=== PATIENT | female | born 1960 | race Caucasian/White ===

== ENCOUNTER 2018-04-08 08:35 | Outpatient (CLI) | payer OTHER | END 2018-04-08 08:37 | disposition home or self-care (01) | LOC: MAMO-SONO 08:35 | DX: Z12.31 Encounter for screening mammogram for malignant neoplasm of breast (principal); Z12.79 Encounter for screening for malignant neoplasm of other genitourinary organs ==

== ENCOUNTER 2020-04-06 11:37 | Outpatient (CLI) | payer OTHER | END 2020-04-06 11:51 | disposition home or self-care (01) | LOC: MAMO-SONO 11:37 | DX: Z12.31 Encounter for screening mammogram for malignant neoplasm of breast (principal); N64.4 Mastodynia ==

== ENCOUNTER 2022-04-11 11:42 | Outpatient (CLI) | payer OTHER | END 2022-04-11 12:01 | disposition home or self-care (01) | LOC: MAMO-SONO 11:42 | PROVIDERS: ATTEND Family Medicine | DX: N60.11 Diffuse cystic mastopathy of right breast (principal); N60.12 Diffuse cystic mastopathy of left breast ==

== ENCOUNTER 2022-09-10 09:27 | Outpatient (CLI) | payer OTHER | END 2022-09-10 09:36 | disposition home or self-care (01) | LOC: SONOGRAMA 09:27 | PROVIDERS: ATTEND Family Medicine | DX: K71.2 Toxic liver disease with acute hepatitis (principal) ==

== ENCOUNTER 2023-07-23 08:30 | Outpatient (CLI) | payer OTHER | END 2023-07-23 08:42 | disposition home or self-care (01) | LOC: SONOGRAMA 08:30 | PROVIDERS: ATTEND Family Medicine | DX: R60.9 Edema, unspecified (principal); K71.2 Toxic liver disease with acute hepatitis ==

== ENCOUNTER 2023-09-11 08:50 | Outpatient (CLI) | payer OTHER ==
[2023-09-11] MEDS ORDERED: ZOLOFT25 MG PO (09:51)
== END 2023-09-11 09:01 | disposition home or self-care (01) ==
LOC: TOM 08:50
DX: R10.11 Right upper quadrant pain (principal)

== ENCOUNTER 2023-09-11 09:35 | Emergency (ER) | payer OTHER ==
[~2023-09-11] VITALS: Ht 165.1 cm; Wt 74.8 kg
[2023-09-11] MEDS ORDERED: ZOLOFT25 MG PO (09:51)
[2023-09-11 10:25] LABS: MEAN CELL VOLUME 95.2 fL (80.00-100.00); MEAN CORPUSCULAR HEMOGLOBIN 32.7 pg (27.00-32.0); MEAN CORPUSCULAR HGB CONC 34.4 g/dl (32.0-36.0); RED BLOOD COUNT 3.68 M/uL (4.00-6.00); RED CELL DISTRIBUTION WIDTH 15.7 % (11.5-14.5)
[2023-09-11 10:26] LABS: PLATELET COUNT 71 K/uL (150-450)
[2023-09-11 10:40] LABS: CALCIUM 9.2 mg/dL (8.5-10.1); CREATININE SERUM 0.59 mg/dL (0.55-1.02); GFR 102.62; POTASSIUM 3.61 mEq/L (3.5-5.1)
== END 2023-09-11 13:47 | disposition home or self-care (01) ==
LOC: ER 09:35
PROVIDERS: Emergency Medicine
DX: R55 Syncope and collapse (principal); R42 Dizziness and giddiness; Z91.013 Allergy to seafood